=== PATIENT | male | born 1960 | race African-American/Black ===

== ENCOUNTER 2023-11-13 14:27 | Emergency (ER) | payer OTHER ==
[~2023-11-13] VITALS: Ht 188 cm; Wt 79.4 kg
[2023-11-13 14:42] VITALS: BP 115/74; PULSE 73; RESP 17; TEMP 98.1; O2SAT 97
--- NOTE | 2023-11-13 15:13 | NUR ---
63 Y/O MALE PT. PRESENT TO THE ED C/O RIGHT SIDE OF CHIN BUG BITE. SWELLING AND REDNESS NOTED. PT. DENIES FEVER OR CHILLS. HEAD OF BED ELEVATED. PT. SPEAKING IN FULL CLEAR SENTENCES. AIRWAY PATENT AND INTACT. PLAN OF CARE ONGOING.
[2023-11-13] MEDS: LIDOCAINE MPF 1% 10 MG/ML VIAL INJ ONE (15:20)
--- NOTE | 2023-11-13 15:41 | NUR ---
LACERATION TRAY AT BED SIDE.
[2023-11-13] MEDS ORDERED: HYDR-5080 PO (16:32)
[2023-11-13] MEDS ORDERED: CEPH-588 PO (16:32)
[2023-11-13 16:49] VITALS: BP 115/74; PULSE 73; RESP 17; TEMP 98.1; O2SAT 97
--- NOTE | 2023-11-13 16:50 | NUR ---
Patient discharged with v/s stable. Written and verbal after care instructions not given and unable to explained due to pt.refuse to wait for d/c instructions Ambulatory with steady gait. All questions addressed prior to discharge. Advised to follow up with PMD. pt. aware of antibiotic therapy.
== END 2023-11-13 16:50 | disposition home or self-care (01) ==
LOC: MED 14:27
DX: M27.2 Inflammatory conditions of jaws (principal); I11.0 Hypertensive heart disease with heart failure; I50.9 Heart failure, unspecified; F14.90 Cocaine use, unspecified, uncomplicated; Z79.899 Other long term (current) drug therapy; Z98.890 Other specified postprocedural states
CPT/HCPCS: 10060; 99284; J2001